=== PATIENT | male | born 1990 | race Caucasian/White ===

== ENCOUNTER 2021-06-12 08:40 | Emergency (ER) | payer BC, OTHER ==
[2021-06-12] MEDS ORDERED: Sodium Chloride 0.9% 10 ML Syringe FLUSH PRN (09:11)
[2021-06-12] MEDS ORDERED: Sodium Chloride 0.9% 1,000 ML IV SCH (09:15)
[2021-06-12 10:00] LABS: ANION GAP 7.6 meq/L (7-15); CHLORIDE,CL 103 mmol/L (98-107); SODIUM,NA 140 mmol/L (136-145)
[2021-06-12] MEDS ORDERED: Pantoprazole 40 MG Vial IVPUSH ONE (10:10)
[2021-06-12 11:56] LABS: BARBITURATE SCREEN,URINE NEGATIVE (NEGATIVE); BENZODIAZEPINES SCREEN,URINE NEGATIVE (NEGATIVE); EDDP,URINE SCREEN NEGATIVE (NEGATIVE); TCA SCREEN,URINE NEGATIVE (NEGATIVE); THC SCREEN,URINE 50 NG/ML POSITIVE (NEGATIVE)
[2021-06-12 20:22] LABS: BUPRENORPHINE SCREEN,URINE NEGATIVE (NEGATIVE)
== END 2021-06-12 10:55 | disposition home or self-care (01) ==
LOC: LL.ED 08:40
DX: R10.13 Epigastric pain (principal); R61 Generalized hyperhidrosis; K21.9 Gastro-esophageal reflux disease without esophagitis; Z87.891 Personal history of nicotine dependence; Z79.899 Other long term (current) drug therapy
CPT/HCPCS: 36415; 74022; 80053; 80305-QW; 82150; 83690; 84484; 85025; 93005; 96374; 99284-25; C9113; J7030